=== PATIENT | male | born 1985 | race Caucasian/White ===

== ENCOUNTER 2025-05-13 09:05 | Observation (INO) ==
[2025-05-13] MEDS: DIPRIVAN VIAL 20 ML ONE (09:34)
[2025-05-13] MEDS: XYLOCAINE 2 % (PLAIN) ONE (09:34)
[2025-05-13] MEDS: LR 1,000 ML IV 1,000 ML IV ONE ×2 (09:38→11:44)
[2025-05-13] MEDS: REGLAN INJ 10 MG VIAL ONE (09:39)
[2025-05-13] MEDS: FENTANYL VIAL INJ 100 mcg ONE (09:39)
[2025-05-13] MEDS: ZOFRAN INJ 4 MG VIAL ONE (09:39)
[2025-05-13] MEDS: ZEMURON 100 MG VIAL ONE (09:39)
[2025-05-13] MEDS: VERSED ONE (09:40)
[2025-05-13] MEDS: OFIRMEV IV 1000 MG VIAL 1,000 MG/100 ML VIAL IV ONE (09:41)
[2025-05-13] MEDS: PEPCID 20 MG VIAL ONE (09:49)
[2025-05-13] MEDS: NS 100 ML IV 100 ML ONE (10:30)
[2025-05-13] MEDS: ANCEF VIAL 1 GRAM ONE (10:30)
[2025-05-13] MEDS: LR 1,000 ML IV 1,200 ML IV PRN (10:30)
[2025-05-13] MEDS: VERSED IVP PRN (10:32)
[2025-05-13] MEDS: ZOFRAN INJ 4 MG VIAL IVP PRN (10:32)
[2025-05-13] MEDS: REGLAN INJ 10 MG VIAL IVP PRN (10:32)
[2025-05-13] MEDS: PEPCID 20 MG VIAL IVP PRN (10:32)
[2025-05-13] MEDS: BRIDION ONE (10:34)
[2025-05-13] MEDS: TORADOL 30 MG VIAL ONE (10:34)
[2025-05-13] MEDS ORDERED: BENADRYL INJ 50 MG VIAL IVP PRN (10:43)
[2025-05-13] MEDS ORDERED: BARHEMSYS INJ IVP PRN (10:43)
[2025-05-13] MEDS ORDERED: ZOFRAN INJ 4 MG VIAL IVP PRN (10:43)
[2025-05-13] MEDS ORDERED: REGLAN INJ 10 MG VIAL IVP PRN (10:43)
[2025-05-13] MEDS: ANCEF VIAL 1 GRAM IV PRN (10:45)
[2025-05-13] MEDS: DIPRIVAN VIAL 200 ML IVP PRN (10:56)
[2025-05-13] MEDS: FENTANYL VIAL INJ 100 mcg IVP PRN (10:56)
[2025-05-13] MEDS: KETAMINE HCL IV PRN (11:01)
[2025-05-13] MEDS: MARCAINE 0.5% ONE (11:07)
[2025-05-13] MEDS: POLYMYXIN B SULFATE ONE (11:07)
[2025-05-13] MEDS ORDERED: ULTANE GAS IN ONE (11:15)
[2025-05-13] MEDS ORDERED: VENTOLIN or PROAIR HFA ONE (11:15)
[2025-05-13] MEDS ORDERED: KETAMINE HCL ONE (11:15)
[2025-05-13] MEDS: OFIRMEV IV 1000 MG VIAL 1,000 MG/100 ML VIAL IV PRN (11:34)
[2025-05-13] MEDS: ZEMURON 100 MG VIAL IVP PRN (11:46)
[2025-05-13] MEDS: DECADRON INJ ONE (11:55)
[2025-05-13] MEDS ORDERED: DANTRIUM PRN (12:02)
[2025-05-13] MEDS: EPHEDRINE SULFATE INJ IVP PRN (12:05)
[2025-05-13] MEDS: DECADRON INJ IVP PRN (12:08)
[2025-05-13] MEDS: TORADOL 30 MG VIAL IVP PRN (12:19)
[2025-05-13] MEDS ORDERED: XYLOCAINE 2 % (PLAIN) PRN (12:24)
[2025-05-13] MEDS: BRIDION IVP PRN (12:26)
[2025-05-13] MEDS: DILAUDID INJ ONE (12:30)
[2025-05-13] MEDS: DILAUDID INJ IVP PRN ×2 (12:43→12:50)
[2025-05-13] MEDS: ULTANE GAS IN ONE (12:56)
[2025-05-13 13:44] VITALS: BMI 36.0
[2025-05-13] MEDS: ANCEF VIAL 1 GRAM 1 G in NS 100 ML IV 100 ML IV SCH (14:19)
[2025-05-13] MEDS: D5 1/2 NS 1,000 ML 1,000 ML IV SCH (14:19)
[2025-05-13] MEDS: MORPHINE SULFATE INJ 2 MG INJ IVP PRN (14:19)
[2025-05-13] MEDS: D5 1/2 NS 1,000 ML 1,000 ML IV ONE (14:43)
[2025-05-13] MEDS: ZOFRAN INJ 4 MG VIAL IV PRN (22:08)
[2025-05-14 04:52] LABS: MEAN PLATELET VOLUME 6.2 fL (7.4-11.0); RED CELL DISTRIBUTION WIDTH 13.5 % (11.6-16.5)
[2025-05-14 05:05] LABS: CREATININE 1.00 mg/dL (0.70-1.30); eGFR NON BLACK RACES > 60 (>60)
[2025-05-14] MEDS: DILAUDID INJ ONE (08:05)
[2025-05-14 08:18] VITALS: BP 125/70; PULSE 100; TEMP 98; O2SAT 99
[2025-05-14] MEDS: ANCEF VIAL 1 GRAM IVP SCH (09:12)
[2025-05-14 09:40] VITALS: RESP 17
== END 2025-05-14 10:35 | disposition home or self-care (01) ==
LOC: MED/SURG 09:05 → SURG1 09:05
PROVIDERS: ADMIT Surgery; ATTEND Surgery
DX: K21.9 Gastro-esophageal reflux disease without esophagitis; Z72.0 Tobacco use; K66.0 Peritoneal adhesions (postprocedural) (postinfection); Z01.811 Encounter for preprocedural respiratory examination; K42.0 Umbilical hernia with obstruction, without gangrene